=== PATIENT | female | born 1970 | race Caucasian/White ===

== ENCOUNTER 2022-05-05 23:44 | Emergency (ER) | payer OTHER ==
[~2022-05-05] VITALS: Ht 160 cm; Wt 51.3 kg
[2022-05-05 23:44] VITALS: BP 141/78
--- NOTE | 2022-05-06 | ED Respiratory ---
General Chief Complaint: Respiratory Problems Stated Complaint: TROUBLE BREATHING Source: patient Exam Limitations: no limitations History of Present Illness Date Seen by Provider: May 05, 2022 Time Seen by Provider: 23:46 Initial Comments 51-year-old female with past medical history of pernicious anemia as well as tobacco smoking coming in due to shortness of breath. Has felt congested with cough for the past couple weeks, worsening shortness of breath over the past several days to past several hours. Denies any fever, vomiting, diarrhea, chest pain, weakness, numbness, or any other concerns. Denies any lung disease or heart disease. Otherwise denies any other acute complaints Has never had a DVT or PE, no recent surgery, no lower extremity swelling or pain, no hormone use, no hemoptysis Of note, she states she had a negative COVID test 2 days ago. Allergies and Home Medications Allergies Coded Allergies: No Known Drug Allergies (Unverified , 05/06/22) Patient Home Medication List Home Medication List Reviewed: Yes Lorazepam (Ativan) 0.5 Mg Tablet, 0.5 MG PO TID PRN for ANXIETY Prescribed by: JOSE STARKS on 05/06/22 0055 Review of Systems Review of Systems Constitutional: No fever EENTM: no symptoms reported Respiratory: see HPI Cardiovascular: no symptoms reported Gastrointestinal: no symptoms reported Genitourinary: no symptoms reported Musculoskeletal: no symptoms reported Skin: no symptoms reported Psychiatric/Neurological: No Symptoms Reported Hematologic/Lymphatic: No Symptoms Reported Past Nktopgc-Ptvyof-Sdgglk Hx Patient Social History Tobacco Use?: Yes Tobacco type used: Cigarettes Past Medical History Surgeries: Yes (D&C) Physical Exam Vital Signs - First Documented 05/05/22 23:44 Temp 36.1 Pulse 98 Resp 28 B/P (MAP) 141/78 (99) Pulse Ox 100 O2 Delivery Room Air Capillary Refill : Height: '" Weight: lbs. oz. kg; BMI Method: General Appearance: WD/WN, mild distress, other (Anxious) Eyes: Bilateral Eye Normal Inspection HEENT: PERRL/EOMI, normal ENT inspection, pharynx normal Neck: non-tender, full range of motion, supple, normal inspection Respiratory: chest non-tender, lungs clear, no accessory muscle use, other (Very loud breathing with constant verbalizations making it difficult to assess lungs sound) Cardiovascular: no edema, no murmur, tachycardia Gastrointestinal: normal bowel sounds, non tender, soft; No distended, No guarding Extremities: normal range of motion, non-tender, normal inspection, no pedal edema, no calf tenderness, normal capillary refill Neurologic/Psychiatric: no motor/sensory deficits, alert, normal mood/affect Skin: normal color, warm/dry Lymphatic: no adenopathy Progress/Results/Core Measures Suspected Sepsis SIRS Temperature: Pulse: Respiratory Rate: Laboratory Tests 05/05/22 23:52: White Blood Count 11.4H Blood Pressure / Mean: Laboratory Tests 05/05/22 23:52: Creatinine 0.63, INR Comment 0.8, Platelet Count 203, Total Bilirubin 0.2 Results/Orders Lab Results Laboratory Tests Test 05/05/22 23:52 Range/Units White Blood Count 11.4 H 4.3-11.0 10^3/uL Red Blood Count 4.28 3.80-5.11 10^6/uL Hemoglobin 14.9 11.5-16.0 g/dL Hematocrit 43 35-52 % Mean Corpuscular Volume 101 H 80-99 fL Mean Corpuscular Hemoglobin 35 H 25-34 pg Mean Corpuscular Hemoglobin Concent 34 32-36 g/dL Red Cell Distribution Width 12.3 10.0-14.5 % Platelet Count 203 130-400 10^3/uL Mean Platelet Volume 9.9 9.0-12.2 fL Immature Granulocyte % (Auto) 0 % Neutrophils (%) (Auto) 45 42-75 % Lymphocytes (%) (Auto) 47 H 12-44 % Monocytes (%) (Auto) 6 0-12 % Eosinophils (%) (Auto) 1 0-10 % Basophils (%) (Auto) 1 0-10 % Neutrophils # (Auto) 5.1 1.8-7.8 10^3/uL Lymphocytes # (Auto) 5.4 H 1.0-4.0 10^3/uL Monocytes # (Auto) 0.7 0.0-1.0 10^3/uL Eosinophils # (Auto) 0.2 0.0-0.3 10^3/uL Basophils # (Auto) 0.1 0.0-0.1 10^3/uL Immature Granulocyte # (Auto) 0.0 0.0-0.1 10^3/uL Prothrombin Time 12.0 L 12.2-14.7 SEC INR Comment 0.8 0.8-1.4 Activated Partial Thromboplast Time 26 24-35 SEC D-Dimer 0.31 0.00-0.49 UG/ML Sodium Level 141 135-145 MMOL/L Potassium Level 3.6 3.6-5.0 MMOL/L Chloride Level 99 98-107 MMOL/L Carbon Dioxide Level 19 L 21-32 MMOL/L Anion Gap 23 H 5-14 MMOL/L Blood Urea Nitrogen 12 7-18 MG/DL Creatinine 0.63 0.60-1.30 MG/DL Estimat Glomerular Filtration Rate 107 BUN/Creatinine Ratio 19 Glucose Level 98 70-105 MG/DL Calcium Level 9.8 8.5-10.1 MG/DL Corrected Calcium 8.5-10.1 MG/DL Magnesium Level 2.2 1.6-2.4 MG/DL Total Bilirubin 0.2 0.1-1.0 MG/DL Aspartate Amino Transf (AST/SGOT) 147 H 5-34 U/L Alanine Aminotransferase (ALT/SGPT) 92 H 0-55 U/L Alkaline Phosphatase 95 40-136 U/L Troponin I < 0.30 <0.30 NG/ML Pro-B-Type Natriuretic Peptide 40.8 <125.0 PG/ML Total Protein 8.2 6.4-8.2 GM/DL Albumin 4.8 H 3.2-4.5 GM/DL Lipase 90 H 8-78 U/L My Orders Orders - JOSE STARKS MD Cbc With Automated Diff (05/05/22 23:56) Comprehensive Metabolic Panel (05/05/22 23:56) Lipase (05/05/22 23:56) Magnesium (05/05/22 23:56) Protime With Inr (05/05/22 23:56) Partial Thromboplastin Time (05/05/22 23:56) Probnp Fs (05/05/22 23:56) Troponin I Fs (05/05/22:56) Monitor-Rhythm Ecg Trace Only (05/05/22:56) Pulse Oximetry Order (05/05/22 23:56) Ed Iv/Invasive Line Start (05/05/22 23:56) Ekg Tracing (05/05/22:56) Chest 1 View Ap/Pa Only (05/05/22 23:56) Prednisone Tablet (Deltasone Tablet) (05/06/22 00:15) Albuterol/Ipra Inhalation Soln (Duoneb I (05/06/22 00:15) Doxycycline Hyclate Tablet (Vibramycin T (05/06/22 00:15) Ondansetron Injection (Zofran Injectio (05/06/22 00:15) Lorazepam Tablet (Ativan Tablet) (05/06/22 00:06) Fibrin Degradation Products (05/06/22 00:57) Medications Given in ED Current Medications Medications Dose Ordered Sig/Anselmo Route Start Time Stop Time Status Last Admin Dose Admin Albuterol/ Ipratropium 3 ml ONCE ONCE IH 05/06/22 00:15 05/06/22 00:16 DC 05/06/22 00:12 3 ML Doxycycline Hyclate 100 mg ONCE ONCE PO 05/06/22 00:15 05/06/22 00:16 DC 05/06/22 00:11 100 MG Ondansetron HCl 4 mg ONCE ONCE IVP 05/06/22 00:15 05/06/22 00:16 DC 05/06/22 00:11 4 MG Prednisone 40 mg ONCE ONCE PO 05/06/22 00:15 05/06/22 00:16 DC 05/06/22 00:12 40 MG Vital Signs/I&O 05/05/22 23:44 Temp 36.1 Pulse 98 Resp 28 B/P (MAP) 141/78 (99) Pulse Ox 100 O2 Delivery Room Air Capillary Refill : Progress Note : Progress Note 51-year-old female with above history coming in due to shortness of breath. The patient was breathing rapidly, and tachycardic on presentation, and it did appear somewhat like an anxiety reaction mostly because she was able to stop it at times, and then when she got worked up by her , it would get worse. She had significant upper respiratory sounds that she was creating, made it difficult to tell if she was wheezing. Given her smoking history, trialed a DuoNeb which she took 1 puff of it and then stopped it. She then pulled her IV out. Gave her oral Ativan as well. It was after this that the stepped out of the room, went to the waiting room, and the patient opened up that she has a lot of anxiety, has intermittent panic attacks with the last one being about a year ago. She states this is exactly that situation. She states that her tends to make it worse during certain scenarios like today where she feels like he is not being helpful around the house. She denies any suicidal homicidal ideation. She states she is feeling better since having the Ativan. Labs significant for negative troponin, negative D-dimer, normal creatinine. I believe she is otherwise stable for discharge with outpatient follow-up. She was sent home with strict return precautions. Of note, when she was calm and having these discussions at the end, her heart rate came down to the 80s, oxygen was 100%, and she was breathing completely normal with no distress. ECG Initial ECG Impression Date: May 06, 2022 Initial ECG Impression Time: 23:49 Initial ECG Rate: 123 Initial ECG Rhythm: S.Tach Comment Narrow QRS, normal axis, no significant ST changes or T wave abnormalities Diagnostic Imaging Diagonstic Imaging: Xray Comments X-ray chest ordered and interpreted by me showing no pneumonia, no obvious pneumothorax, normal cardiac silhouette Departure Impression Primary Impression: Anxiety reaction Disposition: 01 HOME, SELF-CARE Condition: Improved Departure-Patient Inst. Decision time for Depature: 00:53 Referrals: [facility]/AMAYA DELGADO,LOCAL PHYSICIAN (PCP) Primary Care Physician Patient Instructions: Panic Attack ED Add. Discharge Instructions: Your labs were reassuring, your chest x-ray was clear, your lungs sounded clear. Were not seeing any evidence of life-threatening disease. As you stated, this likely is a panic attack. You can try meditation in the future, and if that is not working you can try to take Ativan that was sent to your pharmacy. Please follow-up with your regular doctor regarding this. If you do not have a doctor, you can contact [facility] to schedule an appointment. Their number is in this paperwork. Scripts Lorazepam (Ativan) 0.5 Mg Tablet 0.5 MG PO TID PRN for ANXIETY for 3 Days, #9 TAB Prov: JOSE STARKS MD 05/06/22 Work/School Note: Family Work Note, Patient Received Medical Care In the Emergency Department On: May 06, 2022 Patient Will Be Able to Return to Work/School On: May 07, 2022 Work Release Form Date Seen in the Emergency Department: May 06, 2022 Return to Work: May 07, 2022 Restrictions: No Restrictions JOSE STARKS MD May 06, 2022 00:00
[2022-05-06 00:04] LABS: BASOPHILS # (AUTO) 0.1 10^3/uL (0.0-0.1); BASOPHILS % (AUTO) 1 % (0-10); EOSINOPHILS # (AUTO) 0.2 10^3/uL (0.0-0.3); EOSINOPHILS % (AUTO) 1 % (0-10); HEMATOCRIT 43 % (35-52); HEMOGLOBIN 14.9 g/dL (11.5-16.0); LYMPHOCYTES # (AUTO) 5.4 10^3/uL (1.0-4.0); LYMPHOCYTES % (AUTO) 47 % (12-44); MEAN CORPUSCULAR HEMOGLOBIN 35 pg (25-34); MEAN CORPUSCULAR HGB CONC 34 g/dL (32-36); MEAN CORPUSCULAR VOLUME 101 fL (80-99); MEAN PLATELET VOLUME 9.9 fL (9.0-12.2); MONOCYTES # (AUTO) 0.7 10^3/uL (0.0-1.0); MONOCYTES % (AUTO) 6 % (0-12); NEUTROPHILS # (AUTO) 5.1 10^3/uL (1.8-7.8); NEUTROPHILS % (AUTO) 45 % (42-75); PLATELET COUNT 203 10^3/uL (130-400); WHITE BLOOD COUNT 11.4 10^3/uL (4.3-11.0)
[2022-05-06] MEDS ORDERED: LORazepam 0.5 MG (ATIVAN) TABLET PO STA (00:06)
[2022-05-06] MEDS ORDERED: ONDANSETRON 4 MG/2 ML (SDV) Z0FRAN IVP ONE (00:15)
[2022-05-06] MEDS ORDERED: RT-ALBUTEROL/IPRATROPIUM 3 ML (DUONEB) VIAL IH ONE (00:15)
[2022-05-06] MEDS ORDERED: DOXYCYCLINE 100 MG (VIBRAMYCIN) TABLET PO ONE (00:15)
[2022-05-06] MEDS ORDERED: predniSONE 20 MG TAB PO ONE (00:15)
[2022-05-06 00:47] LABS: CARBON DIOXIDE 19 MMOL/L (21-32); CHLORIDE 99 MMOL/L (98-107); POTASSIUM 3.6 MMOL/L (3.6-5.0); SODIUM 141 MMOL/L (135-145)
[2022-05-06 00:48] LABS: ALANINE AMINOTRANSFERASE 92 U/L (0-55); ALKALINE PHOSPHATASE 95 U/L (40-136); BILIRUBIN,TOTAL 0.2 MG/DL (0.1-1.0); BUN/CREATININE RATIO 19; CALCIUM 9.8 MG/DL (8.5-10.1); CREATININE SERUM 0.63 MG/DL (0.60-1.30); GFR ESTIMATED 107; GLUCOSE 98 MG/DL (70-105); MAGNESIUM 2.2 MG/DL (1.6-2.4); TOTAL PROTEIN 8.2 GM/DL (6.4-8.2)
[2022-05-06 00:49] LABS: ALBUMIN 4.8 GM/DL (3.2-4.5); LIPASE 90 U/L (8-78)
[2022-05-06 00:50] LABS: INR 0.8 (0.8-1.4)
[2022-05-06] MEDS ORDERED: LORA-404 PO (00:54)
--- NOTE | 2022-05-06 08:09 | Diagnostic Imaging Report ---
PATIENT HISTORY: SOB. TECHNIQUE: Single frontal view of the chest. COMPARISON: None FINDINGS: The lung volumes are normal. No focal consolidation is seen. No large pleural effusion or pneumothorax is seen. The cardiomediastinal silhouette is normal in size and contour. No acute osseous abnormality is seen. IMPRESSION: No acute pulmonary abnormality seen. Dictated by: Dictated on workstation # [id number]
== END 2022-05-06 00:57 | disposition home or self-care (01) ==
LOC: ER FS 23:52
DX: F41.0 Panic disorder [episodic paroxysmal anxiety] (principal); F17.210 Nicotine dependence, cigarettes, uncomplicated
CPT/HCPCS: 36415; 71045; 80053; 83690; 83735; 83880; 84484; 85025; 85379; 85610; 85730; 93041; 94640